=== PATIENT | female | born 1990 | race Caucasian/White ===

== ENCOUNTER 2016-10-22 22:04 | Emergency (ER) | payer MEDICAID, OTHER ==
[2016-10-22] MEDS ORDERED: HYDROcodone/Acetaminophen 10/325 mg Tablet ONE (22:33)
[2016-10-22] MEDS ORDERED: Ondansetron ODT 4 MG TAB ONE (22:33)
[2016-10-22] MEDS ORDERED: NIFEdipine XL 30 MG TAB ONE (22:33)
== END 2016-10-22 22:48 | disposition home or self-care (01) ==
LOC: NAV ERS 22:04
DX: O16.1 Unspecified maternal hypertension, first trimester (principal); O99.211 Obesity complicating pregnancy, first trimester; O99.341 Other mental disorders complicating pregnancy, first trimester; F41.9 Anxiety disorder, unspecified; Z3A.11 11 weeks gestation of pregnancy; Z79.899 Other long term (current) drug therapy
CPT/HCPCS: Q0162

== ENCOUNTER 2016-11-29 13:55 | Emergency (ER) | payer OTHER ==
[2016-11-29 14:46] LABS: Bilirubin Negative (Negative); Blood, Urine Trace (Negative); Clarity SL HAZY (Clear); Glucose, Urine (Dipstick) Negative (Negative); Leukocyte Negative (Negative); Nitrite Negative (Negative); Protein, Urine (Dipstick) 100 mg/dL (Neg-Trace); Urobilinogen 0.2 mg/dL (0.2-1.0); pH, Urine 6.5 (5.0-9.0)
[2016-11-29 14:47] LABS: RBC/HPF 0-3 HPF (0-3); Squamous Epithelial 0-3 HPF (0-3)
[2016-11-29 14:48] LABS: Bacteria/HPF Rare-Few HPF (None Seen); Crystals/HPF RARE CA OXALATE HPF (Negative)
== END 2016-11-29 14:55 | disposition home or self-care (01) ==
LOC: NAV ERS 13:55
DX: O26.892 Other specified pregnancy related conditions, second trimester (principal); R30.0 Dysuria; O99.341 Other mental disorders complicating pregnancy, first trimester; F41.9 Anxiety disorder, unspecified; O16.2 Unspecified maternal hypertension, second trimester; O99.212 Obesity complicating pregnancy, second trimester; Z3A.17 17 weeks gestation of pregnancy; Z79.899 Other long term (current) drug therapy
CPT/HCPCS: 81003; 81015; 87086

== ENCOUNTER 2017-02-09 14:11 | Emergency (ER) | payer OTHER ==
[2017-02-09 14:38] LABS: Blood, Urine Trace (Negative); Clarity Slightly Cloudy (Clear); Glucose, Urine (Dipstick) Negative (Negative); Leukocyte Negative (Negative); Nitrite Negative (Negative); Protein, Urine (Dipstick) 30 mg/dL (Neg-Trace)
[2017-02-09 14:44] LABS: Bilirubin Negative (Negative); Icto Negative (Negative); Specific Gravity, Urine 1.028 (1.002-1.036)
[2017-02-09 14:45] LABS: Bacteria/HPF Rare-Few HPF (None Seen); RBC/HPF 0-3 HPF (0-3); WBC/HPF 0-3 HPF (0-3)
[2017-02-09 15:34] LABS: #Basophils 0.1 thou/uL (0.0-0.2); #Lymphocytes 2.3 thou/uL (1.20-3.40); #Monocytes 0.7 thou/uL (0.11-0.59); #Neutrophils 9.6 thou/uL (1.40-6.50); %Basophils 0.6 % (0.0-1.0); %Eosinophils 0.3 % (0.0-10.0); %Lymphocytes 18.3 % (21.0-51.0); %Monocytes 5.5 % (0.0-10.0); %Neutrophils 75.2 % (42.0-75.0); Hemoglobin 11.7 g/dL (12.0-16.0); Mean Corpuscular HGB CONC 32.4 g/dL (32.0-36.0); Mean Corpuscular Hemoglobin 28.8 pg (27.0-31.0); Mean Platelet Volume 8.1 fL (7.4-10.4); Platelet Count 253 thou/uL (130-400); RBC Distribution Width 12.2 % (11.5-14.5); Red Blood Cell (RBC) Count 4.07 mill/uL (4.20-5.40); White Blood Cell (WBC) Count 12.7 thou/uL (4.8-10.8)
[2017-02-09 15:45] LABS: ALT (SGPT) 10 U/L (8-55); AST (SGOT) 7 U/L (5-34); Albumin 3.3 g/dL (3.5-5.0); Alkaline Phosphatase 69 U/L (40-150); Anion Gap 15 mmol/L (10-20); BUN (Urea Nitrogen) 5 mg/dL (7.0-18.7); Bilirubin, Total 0.2 mg/dL (0.2-1.2); Calc. Creatinine Clearance 0 mL/min (70-130); Calcium 9.3 mg/dL (7.8-10.44); Carbon Dioxide 20 mmol/L (22-29); Chloride 107 mmol/L (98-107); Estimated GFR-MDRD Greater than 90; Globulin 3.1 g/dL (2.4-3.5); Glucose 99 mg/dL (70-105); Potassium 3.7 mmol/L (3.5-5.1); Protein, Total 6.4 g/dL (6.0-8.3); Sodium 138 mmol/L (136-145)
== END 2017-02-09 17:44 | disposition short-term general hospital (02) ==
LOC: NAV ERS 14:11
DX: O99.89 Other specified diseases and conditions complicating pregnancy, childbirth and the puerperium (principal); R10.9 Unspecified abdominal pain; O10.913 Unspecified pre-existing hypertension complicating pregnancy, third trimester; O99.343 Other mental disorders complicating pregnancy, third trimester; F41.9 Anxiety disorder, unspecified; Z79.899 Other long term (current) drug therapy; Z79.891 Long term (current) use of opiate analgesic
CPT/HCPCS: 36415; 80053; 81003; 81015; 85025; 87086; 93005; 96360

== ENCOUNTER 2017-03-07 09:02 | Outpatient (CLI) | payer OTHER | END 2017-03-07 09:03 | disposition home or self-care (01) | LOC: NAV LAB 09:02 | PROVIDERS: ATTEND Family Medicine | DX: O09.893 Supervision of other high risk pregnancies, third trimester (principal) | CPT/HCPCS: 82951; 82952 ==

== ENCOUNTER 2017-03-26 08:29 | Outpatient (CLI) | payer OTHER ==
--- NOTE | 2017-03-26 10:30 | ULT ---
COMPLETE ULTRASOUND: This is a limited study with attenuation for growth and amniotic fluid index. The patient has gestational diabetes. COMPARISON: 12/25/16. FINDINGS: Single viable intrauterine fetus is noted in cephalic presentation. The placenta is anterior. Visu alized 4-chamber heart, 3-vessel cord, and stomach were distinctly identified, but anatomy was not specifically addressed on this followup study. heart rate 166 b.p.m. Amniotic fluid is within normal limits. GILL is 18.4 cm. Biometry: BPD 8.5 cm -- 34 weeks 1 day Head circumference 30.7 cm -- 34 weeks 2 days Abdominal circumference 30.4 cm -- 34 weeks 3 days Femur length 6.5 cm -- 33 weeks 3 days IMPRESSION: Gestational age average 33 weeks 4 days. Estimated date of confinement 05/10/17. Estimated w eight 2347 gm. Normal growth when compared to the prior study. POS: [facility]
== END 2017-03-26 08:30 | disposition home or self-care (01) ==
LOC: NAV ULT 08:29
PROVIDERS: ATTEND Family Medicine
DX: O24.410 Gestational diabetes mellitus in pregnancy, diet controlled (principal); Z3A.33 33 weeks gestation of pregnancy
CPT/HCPCS: 76805

== ENCOUNTER 2017-09-16 07:26 | Emergency (ER) | payer OTHER, SELFPAY ==
[2017-09-16 08:33] LABS: #Monocytes 0.6 thou/uL (0.11-0.59); #Neutrophils 6.3 thou/uL (1.40-6.50); %Basophils 0.4 % (0.0-1.0); %Eosinophils 0.4 % (0.0-10.0); %Lymphocytes 22.5 % (21.0-51.0); %Monocytes 6.8 % (0.0-10.0); %Neutrophils 69.8 % (42.0-75.0); Hemoglobin 13.3 g/dL (12.0-16.0); Mean Corpuscular HGB CONC 32.7 g/dL (32.0-36.0); Mean Corpuscular Hemoglobin 27.2 pg (27.0-31.0); Mean Corpuscular Volume 83.3 fl (81.0-99.0); Mean Platelet Volume 9.1 fL (7.4-10.4); Platelet Count 261 thou/uL (130-400); RBC Distribution Width 13.7 % (11.5-14.5); Red Blood Cell (RBC) Count 4.87 mill/uL (4.20-5.40)
[2017-09-16 08:39] LABS: CKMB 0.4 ng/mL (0-6.6); Troponin I Less than 0.010 ng/mL (< 0.028)
--- NOTE | 2017-09-16 08:56 | RAD ---
PA AND LATERAL CHEST RADIOGRAPH: Date: 09-16-17 History: Upper mid sternal chest pain and upper back pain. Patient states pain with taking a deep archana ath and moving arm. Heart feels as if it is fluttering. Cough. Comparison: 03-22-16 FINDINGS: Cardiac silhouette and pulmonary vasculature are within normal limits. Lungs are clear. Osseous struc tures are intact. IMPRESSION: No acute cardiopulmonary process. POS: [facility]
== END 2017-09-16 09:15 | disposition home or self-care (01) ==
LOC: NAV ERS 07:26
DX: R07.9 Chest pain, unspecified (principal); R00.2 Palpitations; E66.9 Obesity, unspecified; F41.9 Anxiety disorder, unspecified; Z79.899 Other long term (current) drug therapy
CPT/HCPCS: 71046; 82553; 84484; 85025; 85379; 93005

== ENCOUNTER 2018-06-23 10:56 | Emergency (ER) | payer SELFPAY ==
[2018-06-23] MEDS ORDERED: Ibuprofen 800 MG TAB ONE (11:47)
--- NOTE | 2018-06-23 12:00 | RAD ---
RADIOGRAPH RIGHT ANKLE THREE VIEWS: History: 28-year-old female status post acute traumatic injury to the right ankle. FINDINGS: There is no fracture. Ankle mortise is congruent. Talar dome is maintained. There is soft tissue koki a. IMPRESSION: 1. Soft tissue edema. 2. No fracture. POS: [facility]
--- NOTE | 2018-06-23 12:05 | RAD ---
RIGHT FOOT 3 VIEWS: Date: 06/23/18 PROVIDED CLINICAL HISTORY: Foot pain status post injury. FINDINGS: There is a conspicuous os peroneum. There is no evidence for fracture or other acute osseous abnormal ity. Alignment appears anatomic. Joint spaces appear preserved. Plantar calcaneal enthesophyte format ion is noted. IMPRESSION: No evidence for an acute osseous abnormality. If there is persistent clinical concern, conservative m anagement and follow-up imaging are advised. POS: [facility]
== END 2018-06-23 12:06 | disposition home or self-care (01) ==
LOC: NAV ERS 10:56
DX: S93.601A Unspecified sprain of right foot, initial encounter (principal); S93.401A Sprain of unspecified ligament of right ankle, initial encounter; E66.9 Obesity, unspecified; I10 Essential (primary) hypertension; F41.9 Anxiety disorder, unspecified; X50.9XXA Other and unspecified overexertion or strenuous movements or postures, initial encounter

== ENCOUNTER 2018-07-11 15:59 | Emergency (ER) | payer SELFPAY | END 2018-07-11 16:30 | disposition home or self-care (01) | LOC: NAV ERS 15:59 | DX: R21 Rash and other nonspecific skin eruption (principal); I10 Essential (primary) hypertension; F41.9 Anxiety disorder, unspecified; E66.9 Obesity, unspecified | CPT/HCPCS: 99282 ==

== ENCOUNTER 2018-10-16 11:39 | Emergency (ER) | payer SELFPAY ==
[2018-10-16] MEDS ORDERED: Lidocaine 1% (PF) 30 ML VIAL ONE (11:55)
[2018-10-16] MEDS ORDERED: Adacel (T-DAP) 0.5 ML SYRINGE ONE (11:55)
[2018-10-16] MEDS ORDERED: Ibuprofen 800 MG TAB ONE (12:27)
[2018-10-16] MEDS ORDERED: Sulfameth/Trimethoprim DS 800-160mg TAB ONE (12:27)
== END 2018-10-16 12:32 | disposition home or self-care (01) ==
LOC: NAV ERS 11:39
DX: L02.411 Cutaneous abscess of right axilla (principal); I10 Essential (primary) hypertension; E66.9 Obesity, unspecified; F41.9 Anxiety disorder, unspecified; Z87.891 Personal history of nicotine dependence
CPT/HCPCS: 10060; 87070; 87205; 90471; 90715; J2001

== ENCOUNTER 2020-03-28 08:05 | Emergency (ER) | payer SELFPAY ==
[2020-03-28] MEDS ORDERED: Morphine 4 MG/ML VIAL ONE (09:08)
[2020-03-28] MEDS ORDERED: Cyclobenzaprine 10 MG TAB ONE (09:08)
[2020-03-28 09:51] LABS: Bilirubin Negative (Negative); Blood, Urine Moderate (Negative); Clarity Clear (Clear); Glucose, Urine (Dipstick) Negative (Negative); Ketone, Urine Negative (Negative); Leukocyte Negative (Negative); Nitrite Negative (Negative); Protein, Urine (Dipstick) Negative (Neg-Trace); Urobilinogen 0.2 mg/dL (Less than 2); pH, Urine 5.5 (5.0-9.0)
[2020-03-28 09:53] LABS: Bacteria/HPF Rare-Few HPF (None Seen); WBC/HPF 0-3 HPF (0-3)
[2020-03-28 09:54] LABS: Mucous/LPF 2+ LPF (<2+)
[2020-03-28 10:07] LABS: #Eosinphils 0.1 thou/uL (0.0-0.7); #Lymphocytes 2.8 thou/uL (1.20-3.40); #Monocytes 0.6 thou/uL (0.11-0.59); #Neutrophils 5.2 thou/uL (1.40-6.50); %Basophils 0.5 % (0.0-1.0); %Eosinophils 1.2 % (0.0-10.0); %Lymphocytes 32.4 % (21.0-51.0); %Monocytes 6.7 % (0.0-10.0); %Neutrophils 59.1 % (42.0-75.0); Hemoglobin 12.5 g/dL (12.0-16.0); Mean Corpuscular HGB CONC 30.8 g/dL (32.0-36.0); Mean Platelet Volume 8.2 fL (7.4-10.4); Platelet Count 204 thou/uL (130-400); RBC Distribution Width 12.8 % (11.5-14.5); Red Blood Cell (RBC) Count 4.32 mill/uL (4.20-5.40); White Blood Cell (WBC) Count 8.7 thou/uL (4.8-10.8)
[2020-03-28 10:20] LABS: Anion Gap 13 mmol/L (10-20); BUN (Urea Nitrogen) 12 mg/dL (7.0-18.7); Calc. Creatinine Clearance 0 mL/min (70-130); Calcium 9.1 mg/dL (7.8-10.44); Carbon Dioxide 24 mmol/L (22-29); Chloride 105 mmol/L (98-107); Estimated GFR-MDRD Greater than 90; Glucose 94 mg/dL (70-105); Sodium 138 mmol/L (136-145)
[2020-03-28] MEDS ORDERED: traMADol HCl 50 MG TAB ONE (10:35)
== END 2020-03-28 12:12 | disposition home or self-care (01) ==
LOC: NAV ERS 08:05
DX: M54.42 Lumbago with sciatica, left side (principal); I83.812 Varicose veins of left lower extremity with pain; E66.9 Obesity, unspecified; I10 Essential (primary) hypertension; F41.9 Anxiety disorder, unspecified; Z87.891 Personal history of nicotine dependence; Z79.899 Other long term (current) drug therapy
CPT/HCPCS: 80048; 81003; 81015; 85025; 85379; 85652; 96372; 99283; J2270

== ENCOUNTER 2020-04-28 13:47 | Emergency (ER) | payer BC ==
[2020-04-28] MEDS ORDERED: diphenhydrAMINE 50 MG/ML VIAL ONE (14:12)
[2020-04-28] MEDS ORDERED: Sodium Chloride 0.9% 1,000 ML ONE (14:12)
[2020-04-28] MEDS ORDERED: Metoclopramide HCl 10 MG/2 ML VIAL ONE ×2 (14:12→15:46)
[2020-04-28 14:17] LABS: Bilirubin Small (Negative); Blood, Urine Moderate (Negative); Glucose, Urine (Dipstick) Negative (Negative); Ketone, Urine Negative (Negative); Leukocyte Moderate (Negative); Nitrite Negative (Negative); Protein, Urine (Dipstick) > or equal to 300 mg/dL (Neg-Trace)
[2020-04-28 14:21] LABS: Clarity Cloudy (Clear); pH, Urine Greater/Equal 9.0 (5.0-9.0)
[2020-04-28 14:22] LABS: Pregnancy Test - Urine (BHCG) Negative (Negative); Pregu Control Background? CLEAR/WHITE (CLR/WHITE); Pregu Control Bar Appear? YES (CONTROL BAR)
[2020-04-28 14:30] LABS: Bacteria/HPF 4+ HPF (None Seen); Mucous/LPF 1+ LPF (<2+); Triple Phosphate Crystal 1+ HPF (None Seen)
[2020-04-28 14:44] LABS: #Basophils 0.1 thou/uL (0.0-0.2); #Eosinphils 0.1 thou/uL (0.0-0.7); #Lymphocytes 2.7 thou/uL (1.20-3.40); #Monocytes 0.7 thou/uL (0.11-0.59); #Neutrophils 11.7 thou/uL (1.40-6.50); %Basophils 0.4 % (0.0-1.0); %Eosinophils 0.8 % (0.0-10.0); %Lymphocytes 17.6 % (21.0-51.0); %Monocytes 4.7 % (0.0-10.0); %Neutrophils 76.6 % (42.0-75.0); Hemoglobin 12.9 g/dL (12.0-16.0); Mean Corpuscular Hemoglobin 28.5 pg (27.0-31.0); Mean Platelet Volume 7.7 fL (7.4-10.4); Platelet Count 348 thou/uL (130-400); Red Blood Cell (RBC) Count 4.51 mill/uL (4.20-5.40); White Blood Cell (WBC) Count 15.3 thou/uL (4.8-10.8)
--- NOTE | 2020-04-28 14:49 | CT ---
CT head noncontrast HISTORY: Headache. COMPARISON: 03/19/2015. FINDINGS: There is no evidence of acute intracranial hemorrhage or infarct. The ventricles appear nor mal in size, shape and position. There is no mass effect or shift of midline structures. Visualized paranasal sinuses remain well aera flor. IMPRESSION : No abnormalities are demonstrated.
[2020-04-28 15:00] LABS: ALT (SGPT) 18 U/L (8-55); Alkaline Phosphatase 99 U/L (40-110); Anion Gap 19 mmol/L (10-20); BUN (Urea Nitrogen) 12 mg/dL (7.0-18.7); Bilirubin, Total 0.3 mg/dL (0.2-1.2); Calc. Creatinine Clearance 0 mL/min (70-130); Calcium 9.8 mg/dL (7.8-10.44); Carbon Dioxide 21 mmol/L (22-29); Chloride 100 mmol/L (98-107); Estimated GFR-MDRD 88; Globulin 3.7 g/dL (2.4-3.5); Glucose 116 mg/dL (70-105); Protein, Total 7.7 g/dL (6.0-8.3); Sodium 136 mmol/L (136-145)
[2020-04-28 15:26] LABS: AST (SGOT) 21 U/L (5-34)
[2020-04-28] MEDS ORDERED: Sodium Chloride 0.9% 100 ML ONE (15:46)
[2020-04-28] MEDS ORDERED: Magnesium 2 GM/50 ML BAG (IN WATER) ONE (15:47)
[2020-04-28] MEDS ORDERED: Sulfameth/Trimethoprim DS 800-160mg TAB ONE (17:01)
== END 2020-04-28 17:05 | disposition home or self-care (01) ==
LOC: NAV ERS 13:47
DX: R51.9 Headache, unspecified (principal); N39.0 Urinary tract infection, site not specified; I10 Essential (primary) hypertension; F41.9 Anxiety disorder, unspecified; F17.200 Nicotine dependence, unspecified, uncomplicated
CPT/HCPCS: 36416; 70450; 80053; 81003; 81015; 81025; 85025; 87086; 94760; 96365; 96366; 96368; 96375; J1200; J2765; J3475; J7050

== ENCOUNTER 2021-03-19 08:27 | Emergency (ER) | payer BC ==
[2021-03-20 12:26] LABS: SARS-CoV-2 PCR by NAA Not Detected (NotDetected)
== END 2021-03-19 10:00 | disposition home or self-care (01) ==
LOC: NAV ERS 08:27
DX: R05 Cough (principal); R50.9 Fever, unspecified; R11.2 Nausea with vomiting, unspecified; R07.9 Chest pain, unspecified; R06.02 Shortness of breath; Z20.822 Contact with and (suspected) exposure to COVID-19
CPT/HCPCS: 99283; U0003; U0005

== ENCOUNTER 2022-01-31 19:09 | Emergency (ER) | payer BC, OTHER | END 2022-01-31 20:04 | disposition home or self-care (01) | LOC: NAV ERS 19:09 | DX: T80.89XA Other complications following infusion, transfusion and therapeutic injection, initial encounter (principal); I10 Essential (primary) hypertension | CPT/HCPCS: 99283 ==

== ENCOUNTER 2023-02-03 12:29 | Emergency (ER) | payer BC, OTHER, SELFPAY ==
[2023-02-03] MEDS ORDERED: Acetaminophen 325 MG TAB ONE (13:00)
== END 2023-02-03 13:25 | disposition home or self-care (01) ==
LOC: NAV ERS 12:29
DX: M54.50 Low back pain, unspecified (principal); G89.29 Other chronic pain; I10 Essential (primary) hypertension; F17.210 Nicotine dependence, cigarettes, uncomplicated
CPT/HCPCS: 99283

== ENCOUNTER 2024-03-08 11:04 | Emergency (ER) | payer BC ==
[2024-03-08] MEDS ORDERED: Albuterol 2.5 MG (3 mL) NEB ONE ×2 (11:34→12:48)
[2024-03-08] MEDS ORDERED: predniSONE 20 MG TAB ONE ×2 (11:34→11:38)
[2024-03-08] MEDS ORDERED: Lisinopril 20 MG TAB ONE (11:34)
[2024-03-08 12:28] LABS: SARS-CoV-2 E Target Negative; SARS-CoV-2 N2 Target Negative; SARS-CoV-2 NAA Rapid Test Not Detected (NotDetected); SARS-CoV-2 RdRP gene Negative
== END 2024-03-08 13:04 | disposition home or self-care (01) ==
LOC: NAV ERS 11:04
DX: J45.909 Unspecified asthma, uncomplicated (principal); I10 Essential (primary) hypertension; F17.210 Nicotine dependence, cigarettes, uncomplicated; Z79.899 Other long term (current) drug therapy
CPT/HCPCS: 71046; 93005; 94640; J7512; J7611; U0002

== ENCOUNTER 2025-04-08 18:09 | Emergency (ER) | payer BC ==
[2025-04-08] MEDS ORDERED: Ibuprofen 800 MG TAB ONE (18:27)
== END 2025-04-08 20:10 | disposition home or self-care (01) ==
LOC: NAV ERS 18:09
DX: S92.354A Nondisplaced fracture of fifth metatarsal bone, right foot, initial encounter for closed fracture (principal); I10 Essential (primary) hypertension; F17.210 Nicotine dependence, cigarettes, uncomplicated; Z79.899 Other long term (current) drug therapy; X50.1XXA Overexertion from prolonged static or awkward postures, initial encounter
CPT/HCPCS: 99283